=== PATIENT | female | born 1985 ===

== ENCOUNTER 2024-07-20 07:53 | Outpatient (AMB) | payer OTHER, SELFPAY ==
--- NOTE | 2024-07-20 07:59 | MHC.PC.OV ---
Vital Signs 07/20/24 08:02 Height 5 ft 2.2 in Weight 189 lb BMI 34.3 BP 130/64 Blood Pressure Location Lt brachial Position Sitting Pulse 87 Pulse Source Pulse Oximeter Temp 97.1 F Temp Source Temporal Artery Scan Pulse Oximetry (%) 97 Oxygen Delivery Method Room Air Intake Visit Reasons: Establish Care Intake Note: Patient is a new patient here to establish care for Wellness visit. Transferring care from [facility]. Medical records have been requested and have not received. Shipping/Receiving Clerk Required: No Court Commissioner: Not Required per policy Accompanied by: Self / Same As Patient Allergies No Known Allergies Allergy (Verified 07/20/24 08:17) Medication List - Last Reconciled 07/20/24 by Catrachita Resendiz PA-C No Known Home Meds Tobacco use date assessed: 07/20/24 Dental Screening Dental Screen Date: 07/20/24 Did you have a dental visit in the last 12 months?: No Did you have a dental problem in the last 6 months where you did not have access to dental care?: No Was dental information given to patient?: Patient has dentist HPI Establish Care HPI Details 38 year old female coming to the office for the first time. Presenting with depression. She has experienced episodic depression with previous treatment using sertraline, now presenting with renewed symptoms of emotional distress and negative impact on life satisfaction. Depression-related concerns include perceived stagnation and stressors from housing market challenges and parenting responsibilities. In addition, the patient experiences recurrent heartburn that was previously alleviated during a weight loss period with phentermine treatment. 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 1. Little interest or pleasure in doing things: several days 2. Feeling down, depressed, or hopeless: several days 3. Trouble falling or staying asleep, or sleeping too much: several days 4. Feeling tired or having little energy: several days 5. Poor appetite or overeating: several days 6. Feeling bad about yourself - or that you are a failure or have let yourself or your family down: several days 7. Trouble concentrating on things, such as reading the newspaper or watching television: not at all 8. Moving or speaking so slowly that other people could have noticed. Or the opposite - being so fidgety or restless that you have been moving around a lot more than usual: not at all 9. Thoughts that you would be better off or of hurting yourself in some way: not at all Total score: 6 Depression Screening Interpretation: Positive Depression Screening Follow-up: Existing condition Depression Screening Done: Yes 21063 - PHQ-9 Billing: Yes Source: Developed by Drs. Al Gates, Hannah Fong, John Colby and colleagues, with an educational melinda from [employer]. Thrive Questionnaire Date Thrive assessed: 07/20/24 I am a: Patient What is your living situation today?: I have a steady place to live Within the past 12 months, did the food you bought not last and you didn't have the money to get more?: Never true Within the past 12 months, did you worry whether your food would run out before you got money to buy more?: Never true Do you have trouble paying for medicines?: No Do you have trouble getting transportation to medical appointments?: No Do you have trouble paying your heating and electricity bill?: No Do you have trouble taking care of your child, family member or friend?: No Do you have trouble with day-to-day activities such as bathing, preparing meals, shopping, managing finances, etc.?: No Are you currently unemployed and looking for a job?: No Are you interested in more education?: Yes Please select the resources that you would like help with: Food, Childcare and Daily support Currently or been in a relationship where the following occur: No concerns reported THRIVE Score: 0 AUDIT C Alcohol Use Questionnaire (AUDIT-C) 1. How often do you have a drink containing alcohol?: 2-3 times a week 2. How many drinks containing alcohol do you have on a typical day when you are drinking?: 1 or 2 3. How often do you have six or more drinks on one occasion?: Less than monthly Total Score: 4 BROOKLYN-7 AMB Questionnaire BROOKLYN-7 Date BROOKLYN - 7 assessed: 07/20/24 Feeling nervous, anxious, or on edge: 0 = Not at all Not being able to stop or control worryin = Not at all Worrying too much about different things: 0 = Not at all Trouble relaxin = Several days Being so restless that it is hard to sit still: 0 = Not at all Becoming easily annoyed or irritable: 0 = Not at all Feeling afraid as if something awful might happen: 0 = Not at all Total BROOKLYN-7 score (0-4 normal; 5-9 mild; 10-14 moderate; 15-21 severe): 1 Source: Developed by Drs. Al Gates, Hannah Fong, John Colby and colleagues, with an educational melinda from [employer]. BROOKLYN-7 Assessment Billing BROOKLYN-7 Assessment Tool: BROOKLYN-7 Assessment 17882 Review of Systems Const Denies body aches, Denies chills, Denies fever(s), Denies headache(s) and Denies poor appetite Eyes Reports no additional complaints ENT Denies dysphagia, Denies dizziness, Denies headache(s) and Denies odynophagia Card Denies chest pain, Denies lightheadedness and Denies dyspnea Resp Denies cough and Denies dyspnea GI Denies abdominal pain, Denies dysphagia, Reports dyspepsia, Reports heartburn, Reports nausea, Denies odynophagia and Denies vomiting Reports no additional complaints Skin/Breast Reports system reviewed and no additional complaints, except as documented Neuro Denies dizziness and Denies headache(s) Psych Reports no additional complaints Physical exam (Primary Care) Vital Signs: Last Vital Signs Temp 97.1 F 07/20/24 08:02 Pulse 87 07/20/24 08:02 BP 130/64 07/20/24 08:02 Pulse Ox 97 07/20/24 08:02 Oxygen Delivery Method Room Air 07/20/24 08:02 BMI result Body Mass Index 34.3 Tobacco/Smoking Status: Tobacco use Status Tobacco use date assessed 07/20/24 07/20/24 08:09 Patient Tobacco Use Status Current someday Tobacco 07/20/24 08:09 Tobacco use type Cigar 07/20/24 08:09 e-Cigarette/Vaping Use Never Used 07/20/24 08:09 PHQ-9: PHQ-9 Score PHQ-9: Total score 6 07/20/24 08:09 Depression Screening Interpretation: Positive Depression Screening Follow-up: Existing condition Thrive Assessment: Date of Thrive Assessment Date Thrive assessed 07/20/24 07/20/24 08:09 Currently or been in a relationship where the following occur: No concerns reported Const General: cooperative, healthy appearing, comfortable and no acute distress Orientation/consciousness: patient oriented x3 HENMT Head: Yes normocephalic Ears: hearing grossly normal bilaterally General nose exam: Normal external nose present Eyes General: appearance normal, both eyes and all related structures Conjunctivae: conjunctivae normal Neck Neck: Yes full ROM and Yes no lymphadenopathy Resp Effort & Inspection: normal respiratory effort Auscultation: clear to auscultation bilaterally, no crackles, no rales, no rhonchi and no wheezes Cardio Rate: regular rate Rhythm: regular rhythm Skin General skin exam: no rashes or lesions noted Neuro General: patient oriented x3 Gait exam (Neuro): Normal gait present Extrem General: Yes normal to inspection, Yes full ROM and No edema Psych Affect: normal affect Attitude: cooperative Insight: Good insight present (Psych) Judgement: Good judgement present (Psych) Coding Level of Care Code New Pt Level 4 (56418) Diagnoses Obesity (BMI 30.0-34.9) E66.811 Heartburn R12 Depression F32.A Additional Codes PHQ-9 - 91241 - PHQ-9 Billing: Yes ([id number]) BROOKLYN-7 Assessment Billing - BROOKLYN-7 Assessment Tool: BROOKLYN-7 Assessment 70507 ([id number]) Assessment & Plan Assessment & Plan (1) Obesity (BMI 30.0-34.9): Code(s): E66.811 - Obesity, class 1 Category: Medical Plan: Healthy diet and regular exercise is encouraged. Prescription sent for phentermine 15 mg as she has been on this in the past and found good benefit from it. Plan to follow up in 2 months for weight check and annual exam. Blood work ordered (2) Heartburn: Code(s): R12 - Heartburn Category: Medical Plan: Avoid trigger foods such as citrus, tomato products, soda, caffeine, spicy foods and other foods that may be irritating to your stomach. Avoid laying flat 3-4 hours after eating and elevate the head of the bed 30 degrees to prevent acid from moving into the esophagus. Discussed the possibility of omeprazole with the patient. She would like to hold off at this time and work on weight loss prior to medication management. (3) Depression: Code(s): F32.A - Depression, unspecified Category: Medical Plan: Plan to start on Zoloft 25 mg at patient request. Declining counseling at this time. Plan The patient was advised to initiate sertraline 25 mg to address depression and receive a prescription for phentermine 15 mg for weight management, expected to also alleviate heartburn. A follow-up appointment is scheduled in two months to review progress on these medications. Blood work is pending to assess the general health profile. Referral to gynecology for cervical screening updates and ovarian cyst monitoring is in place. Recommendations included dietary changes to prevent heartburn, evaluating social tobacco use, and continuing stress reduction techniques. This note was constructed using voice recognition software. While every effort has been made to ensure accuracy and fruit packer, still areas may have been included sometimes these areas may affect the content or meeting of the given symptoms. Total time spent caring for the patient today was 30 minutes. This includes time spent before the visit reviewing the chart, time spent during the visit, and time spent after the visit and documentation. Patient was informed and verbally consented to the use of an ambient scribe for clinic note documentation during this visit. Orders: Orders TSH reflex Free T4 Today F32.A - Depression, unspecified, Z00.00 - Encounter for general adult medical examination without abnormal findings Free T4 (Free Thyroxine) Today F32.A - Depression, unspecified, Z00.00 - Encounter for general adult medical examination without abnormal findings Vitamin B12 and Folate Today E66.811 - Obesity, class 1, Z13.21 - Encounter for screening for nutritional disorder Complete Blood Count Auto Diff Today E66.811 - Obesity, class 1, Z00.00 - Encounter for general adult medical examination without abnormal findings Comprehensive Met. Panel Today E66.811 - Obesity, class 1, Z00.00 - Encounter for general adult medical examination without abnormal findings Vitamin D 25-OH Total Today E66.811 - Obesity, class 1, Z00.00 - Encounter for general adult medical examination without abnormal findings Lipid Panel Today E66.811 - Obesity, class 1, Z13.220 - Encounter for screening for lipoid disorders Referrals PROFESSOR OF FAMILY MEDICINE Referral Z12.4 - Encounter for screening for malignant neoplasm of cervix Medications: New sertraline 25 mg PO DAILY 30 tabs 2RF phentermine must administer 2 hours after breakfast 15 mg PO DAILY 30 caps 0RF sertraline 25 mg PO DAILY 30 tabs 2RF E66.811 - Obesity, class 1
[2024-07-20 08:02] VITALS: BP 130/64; PULSE 87; TEMP 36.2; O2SAT 97; BMI 34.3
== END 2024-07-20 08:34 | disposition home or self-care (01) ==
LOC: HO.HMCH 07:53
DX: R12 Heartburn (principal); E66.811 Obesity, class 1; F32.A Depression, unspecified; Z68.34 Body mass index [BMI] 34.0-34.9, adult

== ENCOUNTER → 2024-07-20 07:53 | Outpatient (BNVA) | payer OTHER, SELFPAY | DX: E66.811 Obesity, class 1 (principal); F32.A Depression, unspecified; R12 Heartburn; Z68.34 Body mass index [BMI] 34.0-34.9, adult | CPT/HCPCS: 96127 ==

== ENCOUNTER 2024-09-15 09:23 | Outpatient (REF) | payer OTHER, SELFPAY ==
[2024-09-15 09:33] LABS: MANUAL DIFF FLAG NO
[2024-09-15 09:39] LABS: Hematocrit 42.2 % (37.0-47.0); Hemoglobin 14.5 g/dl (12.0-16.0); Imm Gran Abs Auto 0.03 X10*3/uL (0.00-0.03); Imm Gran Pct Auto 0.4 % (0.0-0.4); Lymphocytes Absolute Auto 2.2 X10*3/uL (1.2-4.9); Mean Corpuscular HGB Conc 34.4 g/dl (31.0-35.0); Mean Corpuscular Hemoglobin 29.2 pg (27.0-33.0); Mean Corpuscular Volume 85.1 fL (80.0-98.0); NRBC Abs Auto 0.000 X10*3/uL (0.0-0.012); NRBC Pct Auto 0.0 /100WBC (0.0-0.2); Platelet Count 368 X10*3/uL (160-400); Red Blood Count 4.96 X10*6/uL (4.20-5.50); White Blood Count 7.3 X10*3/uL (4.8-10.8)
--- OUTSIDE RECORDS SUMMARY | 2024-09-15 09:53 | XMS_ITS ---
Author Name [facility] Organization Unknown Care Team Organization Name Specialty Phone Email Start Date End Da te [facility] 12/25/2021 024
[2024-09-15 10:10] LABS: Alanine Aminotransferase 18 U/L (0-31); Albumin Level 4.9 g/dL (3.5-5.0); Alkaline Phosphatase 62 U/L (39-117); Anion Gap 13 (12-20); Aspartate Amino Transferase 25 U/L (5-31); Blood Urea Nitrogen 13 mg/dL (9-16); Calcium 9.4 mg/dL (8.4-10.2); Carbon Dioxide 26 mmol/L (22-29); Chloride 104 mmol/L (96-108); Cholesterol 158 mg/dL (<200); Estimated Glomerular Filt Rate > 60; HDL Cholesterol 53 mg/dL (>40); Potassium 4.0 mmol/L (3.3-5.1); Sodium 139 mmol/L (135-145); Total Protein 8.1 g/dL (6.5-8.0); Triglycerides 87 mg/dL (<150)
[2024-09-15 10:29] LABS: Free T4 (Free Thyroxine) 0.97 ng/dL (0.71-1.85)
[2024-09-15 10:41] LABS: Folate 7.3 ng/mL (> or = 4.0); Vitamin B12 540 pg/mL (200-900)
== END 2024-09-15 09:24 | disposition home or self-care (01) ==
LOC: HO.LAB 09:23
DX: Z00.00 Encounter for general adult medical examination without abnormal findings (principal); Z13.220 Encounter for screening for lipoid disorders; Z13.21 Encounter for screening for nutritional disorder; E66.811 Obesity, class 1; F32.A Depression, unspecified
CPT/HCPCS: 36415; 80053; 80061; 82306; 82607; 82746; 84439; 84443; 85025

== ENCOUNTER 2024-09-23 14:53 | Outpatient (AMB) | payer OTHER, SELFPAY ==
--- NOTE | 2024-09-23 14:55 | A.OFFPC_ITS ---
Vital Signs 09/23/24 15:00 Height 5 ft 2.2 in Weight 182 lb BMI 33.1 BP 120/70 Blood Pressure Location Lt brachial Position Sitting Pulse 82 Pulse Source Pulse Oximeter Pulse Oximetry (%) 98 Oxygen Delivery Method Room Air Intake Visit Reasons: Annual Exam Ship Scaler Required: No Accompanied by: Self / Same As Patient Allergies No Known Allergies Allergy (Verified 09/23/24 15:09) Medication List - Last Reconciled 09/23/24 by Catrachita Resendiz PA-C cholecalciferol (vitamin D3) 25 mcg PO DAILY phentermine 15 mg PO DAILY sertraline 25 mg PO DAILY Tobacco use date assessed: 09/23/24 Dental Screening Dental Screen Date: 09/23/24 Did you have a dental visit in the last 12 months?: No Did you have a dental problem in the last 6 months where you did not have access to dental care?: No Was dental information given to patient?: No HPI Annual Exam HPI Details 39-year-old female with past medical his tory of depression, heartburn, obesity last seen 07/2024 coming in for annual exam. At her last visit she is started on Zoloft and phentermine. Presenting for a follow-up visit to manage depression and discuss preventative care measures. The patient has been on sertraline 25 mg for depression, which she reports has been effective in managing her symptoms. She has experienced improved motivation and increased physical activity, contributing to weight loss. The patient reports experiencing heartburn occasionally, which has decreased in frequency. She has been advised to avoid trigger foods and consider omeprazole for management. Recent lab results indicated a vitamin D level of 18 ng/mL, which is below the normal range. The patient has been prescribed vitamin D supplements to address this deficiency. She mentions a 16 lb weight loss since starting the phentermine. Pap smear: appt upcoming with integrity assessor Vaccines: believes she is UTD on [facility] Surgical History History of cystostomy History of delivery Social History Housing: House Alcohol intake: current Alcohol intake frequency: a few times a month Patient Tobacco Use Status: Current someday Tobacco user Tobacco use type: Cigar Cigarettes Per Day: 3 (2-3 a week) e-Cigarette/Vaping Use: Never Used Second Hand Smoke Exposure: No service: No Current occupational status: employed Current occupation: Billing Corridnator Cognitive needs: No Hearing needs: No Vision needs: No Questionnaire Thrive Questionnaire Date Thrive assessed: 08/18/24 I am a: Patient What is your living situation today?: I have a steady place to live Within the past 12 months, did the food you bought not last and you didn't have the money to get more?: Never true Within the past 12 months, did you worry whether your food would run out before you got money to buy more?: Never true Do you have trouble paying for medicines?: No Do you have trouble getting transportation to medical appointments?: No Do you have trouble paying your heating and electricity bill?: No Do you have trouble taking care of your child, family member or friend?: No Do you have trouble with day-to-day activities such as bathing, preparing meals, shopping, managing finances, etc.?: No Are you currently unemployed and looking for a job?: No Are you interested in more education?: Yes Currently or been in a relationship where the following occur: No concerns reported THRIVE Score: 0 BROOKLYN-7 AMB Questionnaire BROOKLYN-7 Date BROOKLYN - 7 assessed: 09/23/24 Source: Developed by Drs. Al Gates, Hannah Fong, John Colby and colleagues, with an educational melinda from [employer]. Review of Systems Const Denies body aches, Denies fatigue, Denies fever(s), Denies frequent falls, Denies headache(s) and Denies weakness Eyes Reports no additional complaints and Denies change in vision ENT Denies dysphagia, Denies dizziness, Denies facial pain, Denies headache(s), Denies nasal congestion and Denies odynophagia Card Denies chest pain, Denies syncope, Denies irregular heart rhythm, Denies leg edema, Denies lightheadedness and Denies dyspnea Resp Denies cough and Denies dyspnea GI Denies abdominal pain, Denies constipation, Denies dysphagia, Denies dyspepsia, Denies diarrhea, Denies nausea, Denies odynophagia and Denies vomiting Denies urinary frequency, Denies dysuria, Denies urinary hesitancy and Denies urinary urgency Musc Denies back pain and Denies myalgias Skin/Breast Reports system reviewed and no additional complaints, except as documented Neuro Denies dizziness, Denies syncope, Denies frequent falls, Denies headache(s) and Denies weakness Psych Reports no additional complaints Endo Denies fatigue Physical exam (Primary Care) Vital Signs: Last Vital Signs Pulse 82 09/23/24 15:00 BP 120/70 09/23/24 15:00 Pulse Ox 98 09/23/24 15:00 Oxygen Delivery Method Room Air 09/23/24 15:00 BMI result Body Mass Index 33.1 Tobacco/Smoking Status: Tobacco use Status Tobacco use date assessed 09/23/24 09/23/24 15:08 Patient Tobacco Use Status Current someday Tobacco 09/23/24 14:58 Tobacco use type Cigar 09/23/24 14:58 e-Cigarette/Vaping Use Never Used 09/23/24 14:58 Thrive Assessment: Date of Thrive Assessment Date Thrive assessed 08/18/24 09/23/24 14:58 Currently or been in a relationship where the following occur: No concerns reported Const General: cooperative, healthy appearing, comfortable and no acute distress Orientation/consciousness: patient oriented x3 HENMT Head: Yes normocephalic Ears: hearing grossly normal bilaterally, external ears normal, TM's normal bilaterally and EAC's normal General nose exam: Normal external nose present Face and sinus: Yes normal facial exam and Yes sinuses nontender Mouth: Normal oral and palatal mucosa present and tongue normal Throat: Yes posterior oropharynx normal Eyes General: appearance normal, both eyes and all related structures Conjunctivae: conjunctivae normal Pupils: Equal, round and reactive pupils present EOM: EOMs intact bilaterally and No Nystagmus present Neck Neck: Yes normal visual inspection, Yes full ROM and Yes no lymphadenopathy Chest Chest palpation & inspection: normal inspection of the chest Resp Effort & Inspection: normal respiratory effort Auscultation: clear to auscultation bilaterally, no crackles, no rales, no rhonchi, no wheezes and breath sounds present Cardio Rate: regular rate Rhythm: regular rhythm Peripheral pulses: radial pulses present and dorsalis pedis present GI Inspection: Yes normal to inspection and No Abdominal wall edema Palpation (GI): Soft to palpation, not firm and nontender Auscultation: normal bowel sounds Rectal Exam - Female: deferred General: Yes no CVA tenderness Back/Spine/Pelvis Back: no CVA tenderness Skin General skin exam: no rashes or lesions noted Neuro General: patient oriented x3 Cranial nerves: Yes Equal, round and reactive pupils present, Yes Midline tongue present, Yes Ability to bilaterally elevate shoulders present and No Nystagmus present Gait exam (Neuro): Normal gait present Extrem General: Yes normal to inspection, Yes full ROM, No no pedal edema and No edema Psych Speech and movement: Normal speech and movement present Affect: normal affect Insight: Good insight present (Psych) Judgement: Good judgement present (Psych) Coding Level of Care Code Est Pt Prev Care 18-39y(13785) Diagnoses Annual physical exam Z00.00 Tobacco use Z72.0 Recurrent major depressive disorder, in partial remission F33.41 Active/Remission status: in partial remission Depression Type: major depressive disorder Major depression recurrence: recurrent Obesity (BMI 30.0-34.9) E66.811 Heartburn R12 Assessment & Plan Assessment & Plan (1) Annual physical exam: Code(s): Z00.00 - Encounter for general adult medical examination without abnormal findings Category: Medical Plan: Patient is up-to-date on all recommended routine screenings and vaccinations for her age. Blood work is up-to-date and has been reviewed with the patient. No medication adjustments were made today plan to follow up in 3 months to continue with weight loss. (2) Tobacco use: Code(s): Z72.0 - Tobacco use Category: Social Hx Plan: Smoking cigarettes and the use of tobacco can be harmful. We discussed the importance of stopping and options to aid in smoking cessation. Not interested in quitting at this time. (3) Depression: Code(s): F32.A - Depression, unspecified Category: Medical Qualifiers: Active/Remission status: in partial remission Depression Type: major de pressive disorder Major depression recurrence: recurrent Qualified Code(s): F33.41 - Major depressive disorder, recurrent, in partial remission Plan: Continue on Zoloft 25 mg as she feels this is beneficial at this time. Declining counseling referral at this time. (4) Obesity (BMI 30.0-34.9): Code(s): E66.811 - Obesity, class 1 Category: Medical Plan: Healthy diet and regular exercise is encouraged. Patient is currently on 15 mg of phentermine daily in his lost 16 lb in the last 2 months. (5) Heartburn: Code(s): R12 - Heartburn Category: Medical Plan: Avoid trigger foods such as citrus, tomato products, soda, caffeine, spicy foods and other foods that may be irritating to your stomach. Avoid laying flat 3-4 hours after eating and elevate the head of the bed 30 degrees to prevent acid from moving into the esophagus. Continue on omeprazole Plan The patient will continue on sertraline 25 mg for depression, as it has been ef fective in managing her symptoms. She is encouraged to maintain her current level of physical activity and weight management efforts, which have contributed positively to her mental health and overall well-being. For heartburn, the patient is advised to avoid trigger foods and consider starting omeprazole if symptoms persist. She is informed about the potential benefits of omeprazole in reducing stomach acid production and is reassured about its compatibility with her current medications. The patient has been prescribed vitamin D supplements to address her deficiency, with a follow-up plan to monitor her levels and adjust the dosage as necessary. She is advised to continue with lifestyle modifications to enhance vitamin D absorption, such as safe sun exposure and dietary adjustments. Preventative care measures include a referral to a players assistant for a Pap smear to screen for cervical cancer. The patient is also reminded of the importance of staying up to date with vaccinations and other routine health screenings. This note was constructed using voice recognition software. While every effort has been made to ensure accuracy and transcription coordinator, still areas may have been included sometimes these areas may affect the content or meeting of the given symptoms. Total time spent caring for the patient today was 30 minutes. This includes time spent before the visit reviewing the chart, time spent during the visit, and time spent after the visit and documentation. Patient was informed and verbally consented to the use of an ambient scribe for clinic note documentation during this visit. Medications: New omeprazole 20 mg PO DAILY 90 caps 0RF Refilled phentermine must administer 2 hours after breakfast 15 mg PO DAILY 30 caps 0RF sertraline 25 mg PO DAILY 90 tabs 2RF E66.811 - Obesity, class 1
[2024-09-23 15:00] VITALS: BP 120/70; PULSE 82; O2SAT 98; BMI 33.1
== END 2024-09-23 15:40 | disposition home or self-care (01) ==
LOC: HO.HMCH 14:54
DX: Z00.00 Encounter for general adult medical examination without abnormal findings (principal); Z72.0 Tobacco use; E66.811 Obesity, class 1; Z68.33 Body mass index [BMI] 33.0-33.9, adult; F33.41 Major depressive disorder, recurrent, in partial remission; R12 Heartburn

== ENCOUNTER 2024-12-24 14:24 | Outpatient (AMB) | payer OTHER, SELFPAY ==
[2024-12-24 14:35] VITALS: BP 110/82; PULSE 91; TEMP 36.2; O2SAT 99; BMI 33.3
--- NOTE | 2024-12-24 14:35 | A.OFFPC_ITS ---
Vital Signs 12/24/24 14:35 Height 5 ft 2.2 in Weight 183 lb BMI 33.3 BP 110/82 Blood Pressure Location Lt brachial Position Sitting Pulse 91 Pulse Source Pulse Oximeter Temp 97.1 F Temp Source Temporal Artery Scan Pulse Oximetry (%) 99 Oxygen Delivery Method Room Air Intake Visit Reasons: 3 mo f/u weight loss Bus Person Required: No Accompanied by: Self / Same As Patient Allergies No Known Allergies Allergy (Verified 12/24/24 14:37) Medication List - Last Reconciled 12/24/24 by Catrachita Resendiz PA-C cholecalciferol (vitamin D3) 25 mcg PO DAILY omeprazole 20 mg PO DAILY phentermine 15 mg PO DAILY sertraline 25 mg PO DAILY Tobacco use date assessed: 09/23/24 Dental Screening Dental Screen Date: 09/23/24 Did you have a dental visit in the last 12 months?: No Did you have a dental problem in the last 6 months where you did not have access to dental care?: No Was dental information given to patient?: No HPI 3 mo f/u weight loss HPI Details 39-year-old female with past medical his tory of depression, heartburn, obesity last seen 09/2024 coming in for follow up. Presenting for a follow-up on weight management with phentermine. She has been using phentermine since July but missed one month in September due to a lost prescription. She also mentions she has been taking it inconsistently over the last two months. The patient states that over the past week without the medication, she feels she has gained about 5 pounds, though her weight is stable since her last visit, measuring 183 lbs today compared to 182 lbs previously. The patient reports having stopped her Zoloft for a few days and felt off upon taking it again, so she has not taken it since. She notes feeling more prone to anger and sadness without the medication and expresses a desire to resume taking it. [facility] Surgical History History of cystostomy History of delivery Social History Housing: House Alcohol intake: current Alcohol intake frequency: a few times a month Patient Tobacco Use Status: Current someday Tobacco user Tobacco use type: Cigar Cigarettes Per Day: 3 (2-3 a week) e-Cigarette/Vaping Use: Never Used Second Hand Smoke Exposure: No service: No Current occupational status: employed Current occupation: [email or web address] Cognitive needs: No Hearing needs: No Vision needs: No Questionnaire PHQ-9 Over the last 2 weeks, how often have you been bothered by any of the following problems? 1. Little interest or pleasure in doing things: several days 2. Feeling down, depressed, or hopeless: several days 3. Trouble falling or staying asleep, or sleeping too much: several days 4. Feeling tired or having little energy: several days 5. Poor appetite or overeating: several days 6. Feeling bad about yourself - or that you are a failure or have let yourself or your family down: several days 7. Trouble concentrating on things, such as reading the newspaper or watching television: not at all 8. Moving or speaking so slowly that other people could have noticed. Or the opposite - being so fidgety or restless that you have been moving around a lot more than usual: not at all 9. Thoughts that you would be better off or of hurting yourself in some way: not at all Total score: 6 Depression Screening Interpretation: Positive Depression Screening Follow-up: Existing condition Depression Screening Done: Yes 66801 - PHQ-9 Billing: Yes Source: Developed by Drs. Al Gates, Hannah Fong, John Colby and colleagues, with an educational melinda from [email or web address]. Thrive Questionnaire Date Thrive assessed: 07/20/24 I am a: Patient What is your living situation today?: I have a steady place to live Within the past 12 months, did the food you bought not last and you didn't have the money to get more?: Never true Within the past 12 months, did you worry whether your food would run out before you got money to buy more?: Never true Do you have trouble paying for medicines?: No Do you have trouble getting transportation to medical appointments?: No Do you have trouble paying your heating and electricity bill?: No Do you have trouble taking care of your child, family member or friend?: No Do you have trouble with day-to-day activities such as bathing, preparing meals, shopping, managing finances, etc.?: No Are you currently unemployed and looking for a job?: No Are you interested in more education?: Yes Currently or been in a relationship where the following occur: No concerns reported THRIVE Score: 0 AUDIT C Alcohol Use Questionnaire (AUDIT-C) 1. How often do you have a drink containing alcohol?: 2-3 times a week 2. How many drinks containing alcohol do you have on a typical day when you are drinking?: 1 or 2 3. How often do you have six or more drinks on one occasion?: Less than monthly Total Score: 4 [place]-7 AMB Questionnaire [place]-7 Date [place] - 7 assessed: 09/23/24 Source: Developed by Drs. Al Gates, Hannah Fong, John Colby and colleagues, with an educational melinda from [email or web address]. Review of Systems Const Denies body aches, Denies chills, Denies fever(s), Denies headache(s) and Denies poor appetite Eyes Reports no additional complaints ENT Denies dizziness and Denies headache(s) Card Denies chest pain, Denies syncope, Denies edema, Denies irregular heart rhythm, Denies lightheadedness and Denies dyspnea Resp Denies dyspnea GI Denies abdominal pain, Denies nausea and Denies vomiting Reports no additional complaints Musc Reports no additional complaints and Denies abnormal gait Skin/Breast Reports system reviewed and no additional complaints, except as documented Neuro Denies abnormal gait, Denies dizziness, Denies syncope and Denies headache(s) Psych Reports no additional complaints Physical exam (Primary Care) Vital Signs: Last Vital Signs Temp 973 F H 12/24/24 14:35 Oxygen Delivery Method Room Air 12/24/24 14:35 Tobacco/Smoking Status: Tobacco use Status Tobacco use date assessed 09/23/24 09/23/24 15:08 Patient Tobacco Use Status Current someday Tobacco 09/23/24 14:58 Tobacco use type Cigar 09/23/24 14:58 e-Cigarette/Vaping Use Never Used 09/23/24 14:58 Depression Screening Interpretation: Positive Depression Screening Follow-up: Existing condition Thrive Assessment: Date of Thrive Assessment Date Thrive assessed 07/20/24 12/22/24 12:06 Currently or been in a relationship where the following occur: No concerns reported Const General: cooperative, healthy appearing, comfortable and no acute distress Orientation/consciousness: patient oriented x3 HENMT Head: Yes normocephalic Ears: hearing grossly normal bilaterally General nose exam: Normal external nose present Eyes General: appearance normal, both eyes and all related structures Conjunctivae: conjunctivae normal Neck Neck: Yes full ROM and Yes no lymphadenopathy Resp Effort & Inspection: normal respiratory effort Auscultation: clear to auscultation bilaterally, no crackles, no rales, no rhonchi and no wheezes Cardio Rate: regular rate Rhythm: regular rhythm Skin General skin exam: no rashes or lesions noted Neuro General: patient oriented x3 Gait exam (Neuro): Normal gait present Extrem General: Yes normal to inspection, Yes full ROM and No edema Psych Affect: normal affect Attitude: cooperative Insight: Good insight present (Psych) Judgement: Good judgement present (Psych) Coding Level of Care Code Est Pt Level 3 (28909) Diagnoses Obesity (BMI 30.0-34.9) E66.811 Tobacco use Z72.0 Recurrent major depressive disorder, in partial remission F33.41 Depression Type: major depressive disorder Major depression recurrence: recurrent Active/Remission status: in partial remission Heartburn R12 Additional Codes PHQ-9 - 79996 - PHQ-9 Billing: Yes ([id number]) Assessment & Plan Assessment & Plan (1) Obesity (BMI 30.0-34.9): Code(s): E66.811 - Obesity, class 1 Category: Medical Plan: Healthy diet and regular exercise is encouraged. Discussed with patient we do not like Phentermine as a parts counterman solution for weight loss. Given she has been inconsistent over the last 3 months we will plan at this time for a 3 months trial period after which point it will be tapered. The patient's weight is stable, and she has been non-adherent to phentermine recently, with use exceeding the recommended 3-month duration. trial for another 3 months was agreed upon, with a plan to taper off during the final month. Injections such as Ozempic were mentioned as a future option if the current trial is unsuccessful. The plan is to prescribe phentermine for three months, with instructions to taper by taking it every other day for the last two weeks of the third month. A follow-up is scheduled in three months. (2) Tobacco use: Code(s): Z72.0 - Tobacco use Category: Social Hx Plan: Smoking cigarettes and the use of tobacco can be harmful. We discussed the i mportance of stopping and options to aid in smoking cessation. Not interested in quitting at this time. (3) Depression: Code(s): F32.A - Depression, unspecified Category: Medical Qualifiers: Depression Type: major depressive disorder Major depression recurrence: recurrent Active/Remission status: in partial remission Qualified Code(s): F33.41 - Major depressive disorder, recurrent, in partial remission Plan: Continue on Zoloft 25 mg as she feels this is beneficial at this time. Declining counseling referral at this time. (4) Heartburn: Code(s): R12 - Heartburn Category: Medical Plan: Avoid trigger foods such as citrus, tomato products, soda, caffeine, spicy foods and other foods that may be irritating to your stomach. Avoid laying flat 3-4 hours after eating and elevate the head of the bed 30 degrees to prevent acid from moving into the esophagus. Continue on Omeprazole Plan This note was constructed using voice recognition software. While every effort has been made to ensure accuracy and cash reconciliation specialist, still areas may have been included sometimes these areas may affect the content or meeting of the given symptoms. Total time spent caring for the patient today was 30 minutes. This includes time spent before the visit reviewing the chart, time spent during the visit, and time spent after the visit and documentation. Patient was informed and verbally consented to the use of an ambient scribe for clinic note documentation during this visit.
== END 2024-12-24 14:54 | disposition home or self-care (01) ==
LOC: HO.HMCH 14:25
DX: R12 Heartburn (principal); E66.811 Obesity, class 1; Z68.33 Body mass index [BMI] 33.0-33.9, adult; F33.41 Major depressive disorder, recurrent, in partial remission; Z72.0 Tobacco use

== ENCOUNTER → 2024-12-24 14:24 | Outpatient (BNVA) | payer OTHER, SELFPAY | DX: E66.811 Obesity, class 1 (principal); E66.9 Obesity, unspecified; F33.41 Major depressive disorder, recurrent, in partial remission; R12 Heartburn; Z78.0 Asymptomatic menopausal state; Z68.33 Body mass index [BMI] 33.0-33.9, adult; Z79.899 Other long term (current) drug therapy | CPT/HCPCS: 96127 ==